=== PATIENT | female | born 1960 | race African-American/Black ===

== ENCOUNTER 2022-01-30 10:45 | Emergency (ER) | payer BC, OTHER ==
[~2022-01-30] VITALS: Ht 160 cm; Wt 77.1 kg
[2022-01-30] MEDS ORDERED: SULF1TAB48 PO (11:07)
[2022-01-30] MEDS ORDERED: SULFAMETH/TRIMETH 800/160 MG TABLET PO ONE (11:15)
[2022-01-30] MEDS ORDERED: SULFAMETH/TRIMETH 800/160 MG TABLET ONE (11:24)
--- NOTE | 2022-01-30 11:28 | NUR ---
PT WAS EVALUATED BY DR CANCHOLA. PT WAS D/C'd TO HOME. D/C INSTRUCTIONS GIVEN TO THE PT BY DR CANCHOLA.
[2022-01-30 11:30] VITALS: BP 139/78
== END 2022-01-30 11:37 | disposition home or self-care (01) ==
LOC: ER 10:45
DX: S60.562A Insect bite (nonvenomous) of left hand, initial encounter (principal); R22.32 Localized swelling, mass and lump, left upper limb; W57.XXXA Bitten or stung by nonvenomous insect and other nonvenomous arthropods, initial encounter; Y92.89 Other specified places as the place of occurrence of the external cause
CPT/HCPCS: A4663

== ENCOUNTER 2025-04-30 11:24 | Emergency (ER) | payer BC ==
[~2025-04-30] VITALS: Ht 160 cm; Wt 84.8 kg
[~2025-04-30 11:24] MED LIST: SULF1TAB48 PO
[2025-04-30 11:30] VITALS: O2SAT 99
[2025-04-30] MEDS ORDERED: LIDOCAINE 1%-EPI 1:100,000 20 ML VIAL ONE (11:37)
[2025-04-30] MEDS: LIDOCAINE 1%-EPI 1:100,000 20 ML VIAL IJ ONE (11:59)
[2025-04-30] MEDS ORDERED: CEPH500C2 PO (12:00)
[2025-04-30] MEDS ORDERED: SULF1TAB48 PO (12:00)
[2025-04-30] MEDS ORDERED: ACET1TAB23 PO (12:57)
[2025-04-30] MEDS ORDERED: HYDROCODONE/APAP 10-325 MG TABLET ONE (12:59)
[2025-04-30] MEDS: HYDROCODONE/APAP 10-325 MG TABLET PO ONE (13:04)
== END 2025-04-30 13:27 | disposition home or self-care (01) ==
LOC: ER 11:24
DX: H60.02 Abscess of left external ear (principal)
CPT/HCPCS: 69020; 99284; J3490; A4606; A4663